=== PATIENT | male | born 1965 | race Caucasian/White ===

== ENCOUNTER 2016-07-06 12:24 | Emergency (ER) | payer OTHER ==
[~2016-07-06] VITALS: Ht 167.6 cm; Wt 81.8 kg
[~2016-07-06 12:24] MED LIST: LISI-567 PO
[2016-07-06 12:27] VITALS: BP 104/78; PULSE 97; RESP 16; O2SAT 98
--- NOTE | 2016-07-06 12:46 | ED.REPORT ---
HPI-General Illness Date of Service July 06, 2016 ED Provider: Zaira Schwartz MD Patient is a 51 year old male who presents to the ED due to dizziness onset 3 days ago. Associated symptoms include confusion, neck pain, chills, trouble talking, trouble walking and intermittent numbness in both hands. He denies nausea, vomiting, headache, chest pain or fever. The patient reports that the dizziness is worse when he closes his eyes and in the morning. Per the patient' s , the patient has seem confused and unstable when trying to walk. Nursing Notes Stated Complaint: POSS STROKE,CONFUSION Chief Complaint: General Complaint Nursing Notes Reviewed: Yes Allergies: Coded Allergies: No Known Allergies (Unverified , 07/06/16) Scheduled Lisinopril (Lisinopril) 20 Mg Tablet 20 MG PO DAILY General Time Seen by MD: 12:45 Chief Complaint Dizziness Hx Obtained From: Patient Arrived By: Walk-in Sudden in Onset?: Yes Onset Occurred: 3 days ago Symptom Duration: Constant Associated with: Reports: Dizziness, Numb extremities (both hands), Speech abnormal Recent Healthcare: No recent doctor visit, No recent hospitalization Similar Sx Previous: No Past Medical History Past Surgical History scheduled for hernia repair Social History Other Social History: Good social support, Ambulatory Status Independent Review of Systems Full Review of Systems Constitutional: Reports: Chills, Denies: Fever Respiratory: Denies: Non-productive cough, Shortness of breath Cardiovascular: Denies: Chest pain GI: Denies: Nausea Musculoskeletal: Reports: Neck pain Neurologic: Reports: Confusion, Dizziness, Headache, Numbness (of both hands), Problem walking Complete sys rev & neg: except as marked. Physical Exam Vital Signs Vital Signs Date Time Temp Pulse Resp B/P Pulse Ox O2 Delivery O2 Flow Rate FiO2 07/06/16 12:27 36.2 97 16 104/78 98 Initial VS: Reviewed, Vital signs abnormal General/Constitutional: Awake, Alert, No acute distress Head / Eyes: Atraumatic, Normocephalic, PERRL, EOMI beats of nystagmus lateral gaze on each side Neck: Atraumatic, Full range of motion Respiratory / Chest: Atraumatic, Breath sounds NL, Breath sounds = bilat, No respiratory distress Cardiovascular: Heart rate NL, Regular rhythm, Heart sounds NL Upper Extremities Upper Extremity / MS: Atraumatic, Full range of motion, Neurologic intact, Vascular intact Lower Extremity / Pelvis / MS: Atraumatic, Full range of motion, Neurologic intact, Vascular intact Skin: Atraumatic, Color NL, No rash, Warm, Dry Neurologic: Oriented X3, Speech NL, No motor deficits, No sensory deficits, Cerebellar NL, Gait NL Psychiatric: Affect NL, Mood NL Interpretation & Diagnostics Lab Results Interpretation Result Diagram: 07/06/16 1255 07/06/16 1255 Test 07/06/16 12:55 07/06/16 14:01 White Blood Count 9.4th/mm3 (3.8-10.1) Red Blood Count 5.11mil/mm3 (4.40-5.80) Hemoglobin 15.8g/dL (13.8-17.2) Hematocrit 45.7% (41.0-50.0) Mean Corpuscular Volume 89.4fL (81-100) Mean Corpuscular Hemoglobin 30.9pg (27.0-35.0) Mean Corpuscular Hemoglobin Concent 34.6% (32.0-37.0) Red Cell Distribution Width 12.6% (12.3-15.4) Platelet Count 305bil/L (150-400) Neutrophils (%) (Auto) 63.3% (40-74) Lymphocytes (%) (Auto) 27.2% (14-46) Monocytes (%) (Auto) 7.2% (4-12) Eosinophils (%) (Auto) 1.8% (0-5) Basophils (%) (Auto) 0.3% (0-3) Sodium Level 136mEq/L (134-144) Potassium Level 3.7mEq/L (3.5-5.2) Chloride Level 95mEq/L (97-108) Carbon Dioxide Level 28mmol/L (18-29) Blood Urea Nitrogen 21mg/dL (6-24) Creatinine 0.79mg/dL (0.76-1.27) Estimat Glomerular Filtration Rate 109mL/min (>59) Glucose Level 111mg/dL (60-99) Calcium Level 10.0mg/dL (8.5-10.1) Magnesium Level 1.9mg/dL (1.6-2.6) Total Bilirubin 0.2mg/dL (0.0-1.2) Aspartate Amino Transf (AST/SGOT) 19U/L (0-50) Alanine Aminotransferase (ALT/SGPT) 20U/L (0-44) Alkaline Phosphatase 68U/L (25-150) Troponin T < 0.010ug/L (0.0-0.011) Total Protein 7.3g/dL (6.4-8.4) Albumin 3.9g/dL (3.4-5.0) Hold Urine Received (Received) Lab Results Interpretation: Tox screen: positive for THC, methamphetamine and amphetamines ECG Interpretation Interpreted by: ED physician Normal ECG Interpretation: Normal rate (83), Normal sinus rhythm X-Ray Chest Interpretation Chest Xray Interpretation: IMPRESSION: Negative chest. No acute cardiopulmonary process is suspected. Dictated by: Claudio Gordon M.D. on 07/06/2016 at 12:11 Approved by: Claudio Gordon M.D. on 07/06/2016 at 12:12 View: Portable, 1 view Interpretation / Wet Read by: Interpret - Radiologist Re-Eval/Medical Decision Med Decision/Clinical Course The patient presents with dizziness and some episodes of confusion per his partner. He has a completely normal neurologic exam although he complains of dizziness. His dizziness appears more vague. A partial list of differential diagnoses considered were peripheral vertigo, CVA, sepsis, electrolyte abnormality, dehydration, and dysrhythmia. His evaluation here was unremarkable. The patient is currently waiting to see our psychologist social, he is been working a lot and may have some issues with increased stress. He is not suicidal, depressed, or homicidal, she will likely discuss whether or not he needs resources. Time of Eval: 14:08 Re-Evaluation/Progress Note: Discussed labs and plan for discharge. The patient understands and agrees to the plan for discharge. All questions were addressed. Discharge & Departure Primary Impression: Dizziness Disposition: Home Discharge Condition All VS Reviewed: Yes Condition: Stable Additional Instructions: All your tests were normal and reassuring. We are unclear of what is causing your dizziness. Follow up with your primary care physician next week. Please return to the emergency department if you develop any new or worsening symptoms including increased dizziness, weakness or tingling in your legs, or episodes of fainting. Referrals: Miguel Antonio MD (PCP) Scribe Attestation Portions of this note were transcribed by Lashell Bloom. I, Dr. Schwartz personally performed the history, physical exam and medical decision-making; I reviewed and confirmed the accuracy of the information in the transcribed note. Signed by: Francois Herr, 07/06/16 and 1414 copies to: Miguel Antonio MD, Jena M MD July 06, 2016 12:46 Mary Bloom July 06, 2016 12:55
[2016-07-06 13:12] LABS: BASOPHILS % (AUTO) 0.3 % (0-3); EOSINOPHILS % (AUTO) 1.8 % (0-5); MONOCYTES % (AUTO) 7.2 % (4-12); Mean Corpuscular Hemoglobin 30.9 pg (27.0-35.0); Mean Corpuscular Volume 89.4 fL (81-100); NEUTROPHILS % (AUTO) 63.3 % (40-74); Platelet Count 305 bil/L (150-400)
--- NOTE | 2016-07-06 13:13 | DRSVH ---
PROCEDURE: X-RAY CHEST ONE VIEW, PORTABLE ([id number]) INDICATIONS: sob TECHNIQUE: One view of the chest was acquired. COMPARISON: None. FINDINGS: Surgical changes and devices: None. Lungs and pleura: No pleural effusions or pneumothorax. Lungs are clear. Mediastinum: Mediastinal contours appear normal. Heart size is normal. Bones and chest wall: No suspicious bony lesions. No right rib fracture appears to be present. Deg enerative changes of the bilateral acromioclavicular joints are noted. Overlying soft tissues appear unremarkable. IMPRESSION: Negative chest. No acute cardiopulmonary process is suspected. Dictated by: Claudio Gordon M.D. on 07/06/2016 at 12:11 Approved by: Claudio Gordon M.D. on 07/06/2016 at 12:12
[2016-07-06 13:33] LABS: TROPONIN T < 0.010 ug/L (0.0-0.011)
[2016-07-06 13:42] LABS: Magnesium 1.9 mg/dL (1.6-2.6)
[2016-07-06 15:45] VITALS: BP 142/87; PULSE 79; RESP 15; O2SAT 100
== END 2016-07-06 15:44 | disposition home or self-care (01) ==
LOC: SED 12:24
DX: R42 Dizziness and giddiness (principal); R68.83 Chills (without fever); R20.0 Anesthesia of skin; M54.2 Cervicalgia; R41.0 Disorientation, unspecified; R47.89 Other speech disturbances; F15.20 Other stimulant dependence, uncomplicated
CPT/HCPCS: 36415; 71010; 80053; 82948; 83735; 84484; 85025; 90791; 93005; 96374; 99285; J2060